=== PATIENT | female | born 1980 | race Caucasian/White ===

== ENCOUNTER → 2017-02-26 | Outpatient (CLI) | payer BC | LOC: MW.CHRC 15:00 | PROVIDERS: ATTEND Family Medicine | DX: L02.91 Cutaneous abscess, unspecified (principal) | CPT/HCPCS: 87070; 87077; 87186 ==

== ENCOUNTER 2022-10-12 07:51 | Day surgery (SDC) | payer BC ==
[2022-10-11 08:54] LABS: CARBON DIOXIDE,CO2 25.7 mmol/L (21.0-32.0); POTASSIUM,K 3.7 mmol/L (3.5-5.1)
[~2022-10-12 07:51] MED LIST: Bupivacaine 0.5% 30 ML SDV ONE; Famotidine 20 MG/2 ML SDV ONE; Propofol 200 MG/20 ML SDV ONE; Sodium Chloride 0.9% 10 ML Syringe FLUSH PRN; Sodium Chloride 0.9% 2.5 ML Syringe FLUSH PRN; Sodium Chloride 0.9% 20 ML SDV IV PRN; Water For Injection, Sterile 40 ML ONE; ceFAZolin 1 GM in Premix Bag 1 BAG IV ONE; fentaNYL 100 MCG/2 ML SDV ONE; fentaNYL 250 MCG/5 ML SDV ONE
[2022-10-12] MEDS ORDERED: fentaNYL 50 MCG/ML SDV IVPUSH PRN (08:13)
[2022-10-12] MEDS ORDERED: HYDROmorphone 1 MG/ML Syringe IVPUSH PRN (08:13)
[2022-10-12] MEDS ORDERED: Ondansetron 4 MG/2 ML SDV IVPUSH PRN ×2 (08:13→11:16)
[2022-10-12] MEDS ORDERED: Metoclopramide 10 MG/2 ML SDV IVPUSH PRN (08:13)
[2022-10-12] MEDS ORDERED: Albuterol 0.083% 2.5 MG/3 ML Neb Soln NEB PRN (08:13)
[2022-10-12] MEDS ORDERED: Naloxone 0.4 MG/ML SDV IVPUSH PRN (08:13)
[2022-10-12] MEDS ORDERED: Morphine 2 MG/ML SYRINGE IVPUSH PRN (08:13)
[2022-10-12] MEDS: Lactated Ringers 1,000 ML IV SCH ×2 (08:22→12:49)
[2022-10-12] MEDS ORDERED: fentaNYL 100 MCG/2 ML SDV ONE (09:55)
[2022-10-12] MEDS ORDERED: Fluorescein 5 ML Vial ONE (09:59)
[2022-10-12] MEDS ORDERED: Dexamethasone 4 MG/ML 5 ML MDV ONE (10:52)
[2022-10-12] MEDS ORDERED: Ketorolac 30 MG/ML SDV ONE (10:52)
[2022-10-12] MEDS ORDERED: Rocuronium Bromide 50 MG/5 ML Syringe ONE (10:52)
[2022-10-12] MEDS ORDERED: Glycopyrrolate 0.2 MG/ML SDV ONE (10:52)
[2022-10-12] MEDS ORDERED: Ondansetron 4 MG/2 ML SDV ONE (10:52)
[2022-10-12] MEDS ORDERED: Meperidine PF 25 MG/ML SDV ONE (11:06)
[2022-10-12] MEDS: Meperidine PF 25 MG/ML SDV IVPUSH PRN ×2 (11:13→11:22)
[2022-10-12] MEDS ORDERED: Morphine 4 MG/ML Syringe IVPUSH PRN (11:16)
[2022-10-12] MEDS ORDERED: Acetaminophen/oxyCODONE 325-5 MG Tab PO PRN (11:16)
[2022-10-12] MEDS ORDERED: Promethazine 25 MG/ML SDV IM PRN (11:16)
[2022-10-12] MEDS ORDERED: Ketorolac 30 MG/ML SDV IVPUSH ONE (11:16)
[2022-10-12] MEDS: Acetaminophen/oxyCODONE 325-5 MG Tab PO PRN ×3 (12:53→22:24)
[2022-10-12] MEDS ORDERED: Ketorolac 30 MG/ML SDV IVPUSH PRN (17:00)
[2022-10-13 07:43] LABS: POTASSIUM,K 3.7 mmol/L (3.5-5.1)
[2022-10-13 09:44] VITALS: BP 116/57; PULSE 90
== END 2022-10-13 09:45 | disposition home or self-care (01) ==
LOC: MW.SDS 07:51 → UNDOADMOB 12:00 → MW.MS 12:00 → UNDODISOB 10-13 09:45 → MW.SDS 10-13 09:45
PROVIDERS: ATTEND Obstetrics & Gynecology
DX: D25.9 Leiomyoma of uterus, unspecified (principal); N83.8 Other noninflammatory disorders of ovary, fallopian tube and broad ligament; D06.0 Carcinoma in situ of endocervix; J45.909 Unspecified asthma, uncomplicated; F41.9 Anxiety disorder, unspecified; K21.9 Gastro-esophageal reflux disease without esophagitis; E04.2 Nontoxic multinodular goiter; Z79.899 Other long term (current) drug therapy
CPT/HCPCS: 36415; 58571; 80048; 84703; 85025; 85027; 86850; 86900; 86901; A9270; J1100; J1885; J2175; J2704; J3010; J3490; J7030; J7120; J2405